=== PATIENT | male | born 1975 | race Two or more races ===

== ENCOUNTER 2022-12-05 07:07 | Day surgery (SDC) | payer BC ==
[2022-12-02 15:17] VITALS: BMI 23.0
[2022-12-05] MEDS ORDERED: LIDOCAINE HCL/PF 2% SDV 5ML VIAL ONE (07:30)
[2022-12-05] MEDS ORDERED: PROPOFOL 80 ML ONE (07:30)
[2022-12-05 09:07] VITALS: TEMP 98
[2022-12-05 09:09] VITALS: RESP 19
[2022-12-05 09:10] VITALS: BP 108/66; PULSE 72
== END 2022-12-05 09:18 | disposition home or self-care (01) ==
LOC: FASU-ENDO 07:07
PROVIDERS: ATTEND Internal Medicine Gastroenterology
PROC: 0DBH8ZX Excision of Cecum, Via Natural or Artificial Opening Endoscopic, Diagnostic (ICD-10-PCS; principal; 2022-12-05 08:19)
DX: Z12.11 Encounter for screening for malignant neoplasm of colon (principal); D12.0 Benign neoplasm of cecum
CPT/HCPCS: 88305-TC